=== PATIENT | female | born 1995 | race Caucasian/White ===

== ENCOUNTER 2017-03-27 15:20 | Emergency (ER) | payer OTHER ==
[~2017-03-27] VITALS: Ht 154.9 cm; Wt 54.5 kg
[2017-03-27] MEDS ORDERED: SODIUM CHLORIDE 0.9% 1,000 ML IV ONE (16:00)
[2017-03-27] MEDS ORDERED: ACETAMINOPHEN 1000 MG/ISO-OSM 100 ML IV ONE (16:00)
[2017-03-27 16:01] LABS: APPEARANCE,URINE CLOUDY (CLEAR); GLUCOSE, URINE (UA) NEGATIVE (NEGATIVE); KETONES,URINE TRACE mg/dL (NEGATIVE); LEUKOCYTE ESTERASE ,URINE LARGE (NEGATIVE); OCCULT BLOOD,URINE NEGATIVE (NEGATIVE); PROTEIN,URINE NEGATIVE (NEGATIVE)
[2017-03-27 16:10] LABS: SQUAMOUS EPITHELIAL CELL,UR Many /LPF (None Seen)
[2017-03-27 16:11] LABS: WBC,URINE >100 /HPF (0-5)
[2017-03-27 16:12] LABS: RBC,URINE 0-2 /HPF (0-2)
[2017-03-27] MEDS ORDERED: CefTRIAXone 1 GM/DEXTROSE 50 ML IV ONE (16:30)
[2017-03-27 17:49] VITALS: BP 125/69
== END 2017-03-27 17:59 | disposition home or self-care (01) ==
LOC: EMS 15:24
DX: O23.42 Unspecified infection of urinary tract in pregnancy, second trimester (principal); Z3A.18 18 weeks gestation of pregnancy
CPT/HCPCS: 81001; 87086; 96365; 96367; 99285; J0131; J0696; J7030